=== PATIENT | female | born 1975 | race Hispanic/Latino ===

== ENCOUNTER 2016-10-27 13:13 | Emergency (ER) | payer OTHER ==
[~2016-10-27] VITALS: Ht 160 cm; Wt 56.4 kg
[2016-10-27 13:16] VITALS: BP 139/81; PULSE 98; RESP 15; O2SAT 100
[2016-10-27] MEDS ORDERED: 0.9% Sodium Chloride 1,000 ML IV ONE (13:30)
[2016-10-27] MEDS ORDERED: Ondansetron 2 mg/mL 2 mL Inj IVPUSH PRN (13:30)
--- NOTE | 2016-10-27 13:38 | ED.REPORT ---
HPI-Abd Pain F 40 and Over Date of Service Oct 27, 2016 ED Provider: Karen Horan History of Present Illness: right side pain since this am. no nausea or vomiting. no hx of stones. no hx of cysts. primary care is kaufman. pain comes and goes. 10 was 10/10, no injury. pain is in right upper quadrant. Nursing Notes Stated Complaint: STOMACH PAIN Chief Complaint: Female Abdominal Pain Nursing Notes Reviewed: Yes Allergies: Coded Allergies: Penicillins (Verified Allergy, Severe, RASH, 10/27/16) clindamycin (Verified Allergy, Intermediate, headache, 10/27/16) Tetracyclines (Verified Allergy, Unknown, 10/27/16) Uncoded Allergies: Penicillin (Allergy, Intermediate, 01/16/05) RASH A CHILD PCN CHILD (RASH) (Allergy, Unknown, 01/16/05) General Time Seen by MD: 13:36 Chief Complaint Abdominal pain Hx Obtained From: Patient Sudden in Onset?: Yes Symptom Duration: Intermittent Past Medical History Past Medical History Denies: Asthma, Diabetes mellitus Past Surgical History carpal tunnel and breast augmentation Smoking History Never Smoker Social History Alcohol Use: "Social" Drug Use: Denies drug use Other Social History: Occupation work at [employer] Ambulatory Status Independent Review of Systems Basic Review of Systems Eyes: Vision NL, No discharge Skin: No bruising, No rash, No itch Psychiatric: Normal thought content Physical Exam Vital Signs Vital Signs (First) Date Time Temp Pulse Resp B/P Pulse Ox O2 Delivery O2 Flow Rate FiO2 10/27/16 13:16 36.1 98 15 139/81 100 Room Air Initial VS: Reviewed, Vital signs normal Head / Eyes: Atraumatic, Normocephalic, PERRL ENT: Mucous membranes moist, Conjunctiva normal, No scleral icterus Neck: Supple, Non-tender, Full range of motion Lymphatic: No lymphadenopathy Extremities: Vascular intact, Neuro intact, No swelling, No tenderness Skin: Warm, Dry, No cyanosis Neurologic: Alert, Oriented, Nonfocal Psychiatric: Mood/affect normal, Behavior normal, Normal thought content General/Constitutional: Awake, Alert, No acute distress, Well appearing, Well developed, Well hydrated, Well nourished, Cooperative, Not toxic appearing Respiratory / Chest: Atraumatic, Breath sounds NL, Breath sounds = bilat, No respiratory distress, No rales, No rhonchi Cardiovascular: Heart rate NL, Regular rhythm, Heart sounds NL, No gallop Abdomen: Atraumatic, Soft Tenderness/Guarding/Rebound: Positive: Tender RUQ... (Mild) Back: Atraumatic, Inspection NL, Full range of motion, Painless range of motion Head / Eyes: Atraumatic, Normocephalic, PERRL Interpretation & Diagnostics Lab Results Interpretation Result Diagram: 10/27/16 1345 10/27/16 1345 Test 10/27/16 13:45 10/27/16 13:53 10/27/16 15:10 White Blood Count 10.6th/mm3 (3.8-10.1) Red Blood Count 4.83mil/mm3 (3.90-5.20) Hemoglobin 14.6g/dL (12.0-15.6) Hematocrit 44.3% (35.0-46.0) Mean Corpuscular Volume 91.7fL (81-100) Mean Corpuscular Hemoglobin 30.2pg (27.0-35.0) Mean Corpuscular Hemoglobin Concent 33.0% (32.0-37.0) Red Cell Distribution Width 13.1% (12.3-15.4) Platelet Count 299bil/L (150-400) Neutrophils (%) (Auto) 70.9% (40-74) Lymphocytes (%) (Auto) 20.2% (14-46) Monocytes (%) (Auto) 7.3% (4-12) Eosinophils (%) (Auto) 1.0% (0-5) Basophils (%) (Auto) 0.3% (0-3) Sodium Level 137mEq/L (134-144) Potassium Level 4.2mEq/L (3.5-5.2) Chloride Level 99mEq/L (97-108) Carbon Dioxide Level 23mmol/L (18-29) Blood Urea Nitrogen 9mg/dL (6-20) Creatinine 0.53mg/dL (0.57-1.00) Estimat Glomerular Filtration Rate 185mL/min (>59) Glucose Level 117mg/dL (60-99) Calcium Level 10.2mg/dL (8.5-10.1) Magnesium Level 2.1mg/dL (1.6-2.6) Total Bilirubin 0.9mg/dL (0.0-1.2) Aspartate Amino Transf (AST/SGOT) 31U/L (0-50) Alanine Aminotransferase (ALT/SGPT) 22U/L (0-32) Alkaline Phosphatase 49U/L (25-150) Total Protein 9.0g/dL (6.4-8.4) Albumin 4.7g/dL (3.4-5.0) Lipase 50U/L (13-60) Hold Blue Top Tube Received (Received) Hold Mcdowell Top Tube Received (Received) Urine Color Yellow (YELLOW) Urine Appearance Hazy (CLEAR,HAZY) Urine pH 6.0 (5.0-8.0) Urine Specific [place] 1.010 (1.003-1.035) Urine Protein Negativemg/dL (NEG,TRACE) Urine Glucose (UA) Negativemg/dL (NEGATIVE) Urine Ketones Negativemg/dL (NEGATIVE) Urine Occult Blood Negative (NEGATIVE) Urine Nitrite Negative (NEGATIVE) Urine Bilirubin Negative (NEGATIVE) Urine Urobilinogen Normalmg/dL (NORMAL) Urine Leukocyte Esterase Negative (NEGATIVE) Urine RBC 0-2/hpf (0-2) Urine WBC 0-5/hpf (0-5) Urine Epithelial Cells Many/hpf (NONE-MOD) Urine Crystals None seen (NONE SEEN) Urine Bacteria Few/hpf (NONE-FEW) Urine Hyaline Casts None/lpf (NONE) Urine Granular Casts None seen (NONE SEEN) Urine Waxy Casts None seen (NONE SEEN) Urine Red Blood Cell Casts None seen (NONE SEEN) Urine White Blood Cell Casts None seen (NONE SEEN) Urine Mucus Present (None Seen) Urine Trichomonas None seen (NONE SEEN) Urine Yeast None (NONE SEEN) Urine Culture Reflexed Not indicated Lab Results Interpretation: urine is negative CT Abd / Pelvis Interpretation INDICATIONS: Right lower quadrant and abdominal pain TECHNIQUE: After the administration of oral and intravenous contrast, 5 mm thick sections acquired from the diaphragms to the symphysis. 5 mm thick coronal and sagittal reformats were performed. For radiation dose reduction, the following was used: automated exposure control, adjustment of mA and/or kV according to patient size. COMPARISON: [facility], US, US ABDOMEN, 10/27/2016, 14:11. [facility] , CT, ABDOMEN W CONTRAST, 11/15/2002, 11:44. [facility] , CT, KUB - CT (PNL), 11/15/2008, 11:34. FINDINGS: Image quality: Excellent. ABDOMEN: Lung bases: Lung bases are clear. Heart size is normal. Solid organs: There is a 1.5 cm indeterminate low density nodule in the posterior segment of right hepatic lobe. A 2 cm cyst is noted in the lateral segment of the left hepatic lobe. Liver and spleen are normal in size. Gallbladder is normal. Biliary system is non-dilated. Pancreas enhances normally. No adrenal nodules. Kidneys are normal in size and enhancement, without hydronephrosis. Peritoneum and bowel: Stomach, small bowel, and colon loops are normal in caliber and wall thickness. Appendix is normal. There is no inflammatory stranding in the right lower quadrant. No free fluid or air. Nodes and vessels: No retroperitoneal or mesenteric adenopathy. Aorta and inferior vena cava are normal in caliber. Miscellaneous: No ventral hernias. PELVIS: Genitourinary: Bladder wall thickness is normal. A 2 cm cyst is noted in the right adnexa. Uterus is unremarkable. No pathological free fluid. Miscellaneous: No inguinal hernias or adenopathy. Bones: No suspicious bony lesions. No vertebral body compression fractures. IMPRESSION: 1. Normal appendix. There is no inflammatory stranding in the right lower quadrant. 2. A 2 cm right ovarian cyst. 3. A 1.5 cm indeterminate hepatic hypodensity in the right hepatic lobe. If the patient has known liver disease, a followup liver protocol MRIs recommended. In the absence of liver disease, short interval followup ultrasound would suffice. Dictated by: Peyton Barbosa M.D. on 10/27/2016 at 17:49 Approved by: Peyton Barbosa M.D. on 10/27/2016 at 18:05 US Focused Biliary INDICATIONS: Possible gallbladder pain TECHNIQUE: Real-time scanning was performed of the abdominal and retroperitoneal organs, with image documentation. COMPARISON: None. FINDINGS: Liver: Liver is normal in size and homogeneous in echotexture. Gallbladder: The gallbladder appears normal Biliary ducts: Intrahepatic bile ducts are non-dilated. Extrahepatic bile duct caliber measures 4.6 mm. Normal is 6-7 mm or less in diameter, or 10 mm or less post-cholecystectomy. Pancreas: Visualized portions of the pancreas are sonographically normal. Spleen: Spleen is normal in size and homogeneous in echotexture. Kidneys: Kidneys are normal in size and echotexture. Right kidney measures 10.4 cm long; left kidney measures 11.5 cm long. No hydronephrosis or nephrolithiasis. No solid masses. Aorta: Visualized aorta is normal in caliber at less than 3 cm. Iliacs: Proximal common iliac arteries are normal in caliber at less than 2.5 cm. IVC: Intrahepatic inferior vena cava is patent. Miscellaneous: No free abdominal fluid. IMPRESSION: Source of abdominal pain is not seen. Normal appearing gallbladder and bile ducts. No free fluid found. Re-Eval/Medical Decision Med Decision/Clinical Course 40 year old female with sudden onset of abdominal pain that started this am. Pain initially a 10/10 but has decreased to 4/10. denies nausea. US of gallbladder and kidneys are negative. Abd CT identifies a 2 cm ovarian cyst and a 1.5 liver cyst, unlikley to be the cause of the pain. Provided pain medication and nausea medication.No sign of cholecystitis or peritonitis Discharge & Departure Primary Impression: Abdominal pain Abdominal location: right lower quadrant Qualified Code: R10.31 - Right lower quadrant pain Disposition: Home Patient Instructions: Acute Abdominal Pain (ED) Additional Instructions: Your labs are unremarkable. No sign of infection. The US did not show any abnormalities in the gallbladder. The CT did show a 2 cm right ovarian cyst, there was no free fluid. It also showed a 1.5 cyst in the right hepatic lobe. Your liver enzymes are normal. Without free fluid or an increase in liver enzymes it is unlikely these findings are causing your pain. The urine does not show any sign of infection. Use hydrocodone 1 up to 2 times a day as needed for discomfort. Can also use zofran to help with nause. This medication causes significant constipation, please increase your fiber. REturn with any concerns. Follow with primary care later this week. Referrals: Valencia Kaufman MD (PCP) EDSupervising Provider for APC: Javi Brito MD copies to: Valencia Kaufman MD, Sue ARNP Oct 27, 2016 13:38
[2016-10-27] MEDS: HYDROmorphone 0.5 mg/0.5 mL iSecure Syringe IVPUSH PRN ×2 (13:48→16:05)
[2016-10-27 13:58] LABS: BASOPHILS % (AUTO) 0.3 % (0-3); MONOCYTES % (AUTO) 7.3 % (4-12); Mean Corpuscular Hemoglobin 30.2 pg (27.0-35.0); Mean Corpuscular Volume 91.7 fL (81-100); NEUTROPHILS % (AUTO) 70.9 % (40-74); Platelet Count 299 bil/L (150-400)
[2016-10-27 14:23] LABS: Magnesium 2.1 mg/dL (1.6-2.6)
--- NOTE | 2016-10-27 15:02 | DRSVH ---
PROCEDURE: US ABDOMEN ([id number]) INDICATIONS: Possible gallbladder pain TECHNIQUE: Real-time scanning was performed of the abdominal and retroperitoneal organs, with image documentatio n. COMPARISON: None. FINDINGS: Liver: Liver is normal in size and homogeneous in echotexture. Gallbladder: The gallbladder appears normal Biliary ducts: Intrahepatic bile ducts are non-dilated. Extrahepatic bile duct caliber measures 4.6 mm. Normal is 6-7 mm or less in diameter, or 10 mm or less post-cholecystectomy. Pancreas: Visualized portions of the pancreas are sonographically normal. Spleen: Spleen is normal in size and homogeneous in echotexture. Kidneys: Kidneys are normal in size and echotexture. Right kidney measures 10.4 cm long; left kidne y measures 11.5 cm long. No hydronephrosis or nephrolithiasis. No solid masses. Aorta: Visualized aorta is normal in caliber at less than 3 cm. Iliacs: Proximal common iliac arteries are normal in caliber at less than 2.5 cm. IVC: Intrahepatic inferior vena cava is patent. Miscellaneous: No free abdominal fluid. IMPRESSION: Source of abdominal pain is not seen. Normal appearing gallbladder and bile ducts. No f ree fluid found. Dictated by: Migel Cisneros M.D. on 10/27/2016 at 14:58 Approved by: Migel Cisneros M.D. on 10/27/2016 at 15:00
[2016-10-27 15:04] VITALS: BP 133/72; PULSE 104; RESP 16; O2SAT 99
[2016-10-27] MEDS ORDERED: HYDROmorphone 0.5 mg/0.5 mL iSecure Syringe IVPUSH PRN (15:10)
[2016-10-27 15:22] LABS: APPEARANCE,URINE HAZY (CLEAR,HAZY); COLOR,URINE YELLOW (YELLOW); OCCULT BLOOD,URINE NEGATIVE (NEGATIVE); UROBILINOGEN,URINE NORMAL (NORMAL)
[2016-10-27] MEDS ORDERED: Iohexol 300 mg/mL 30 mL Inj PO ONE (16:30)
[2016-10-27 16:55] VITALS: BP 124/76; PULSE 81; RESP 16; O2SAT 99
--- NOTE | 2016-10-27 18:07 | DRSVH ---
PROCEDURE: CT ABDOMEN AND PELVIS WITH CONTRAST ([id number]) INDICATIONS: Right lower quadrant and abdominal pain TECHNIQUE: After the administration of oral and intravenous contrast, 5 mm thick sections acquired from the diap hragms to the symphysis. 5 mm thick coronal and sagittal reformats were performed. For radiation do se reduction, the following was used: automated exposure control, adjustment of mA and/or kV accordi ng to patient size. COMPARISON: [facility], US, US ABDOMEN, 10/27/2016, 14:11. [facility] , CT, ABDOMEN W CONTRAST, 11/15/2002, 11:44. [facility] , CT, KUB - CT ([facility]), 11/15/2008 , 11:34. FINDINGS: Image quality: Excellent. ABDOMEN: Lung bases: Lung bases are clear. Heart size is normal. Solid organs: There is a 1.5 cm indeterminate low density nodule in the posterior segment of right h epatic lobe. A 2 cm cyst is noted in the lateral segment of the left hepatic lobe. Liver and spleen a re normal in size. Gallbladder is normal. Biliary system is non-dilated. Pancreas enhances normall y. No adrenal nodules. Kidneys are normal in size and enhancement, without hydronephrosis. Peritoneum and bowel: Stomach, small bowel, and colon loops are normal in caliber and wall thickness . Appendix is normal. There is no inflammatory stranding in the right lower quadrant. No free fluid or air. Nodes and vessels: No retroperitoneal or mesenteric adenopathy. Aorta and inferior vena cava are no rmal in caliber. Miscellaneous: No ventral hernias. PELVIS: Genitourinary: Bladder wall thickness is normal. A 2 cm cyst is noted in the right adnexa. Uterus i s unremarkable. No pathological free fluid. Miscellaneous: No inguinal hernias or adenopathy. Bones: No suspicious bony lesions. No vertebral body compression fractures. IMPRESSION: 1. Normal appendix. There is no inflammatory stranding in the right lower quadrant. 2. A 2 cm right ovarian cyst. 3. A 1.5 cm indeterminate hepatic hypodensity in the right hepatic lobe. If the patient has known valente er disease, a followup liver protocol MRIs recommended. In the absence of liver disease, short interv al followup ultrasound would suffice. Dictated by: Peyton Barbosa M.D. on 10/27/2016 at 17:49 Approved by: Peyton Barbosa M.D. on 10/27/2016 at 18:05
[2016-10-27 18:37] VITALS: BP 121/61; PULSE 87; RESP 16; O2SAT 98
[2016-11-18] MEDS ORDERED: HYDR-4003 PO (09:38)
[2016-11-18] MEDS ORDERED: RANI150C4 PO (09:38)
[2016-11-18] MEDS ORDERED: ONDA-53 PO (09:38)
[2016-11-18] MEDS ORDERED: PROG50VI2 IM (09:38)
[2016-11-18] MEDS ORDERED: ACIDOPHILUS PROB1 M1 PO (09:38)
[2016-11-18] MEDS ORDERED: METH750T3 PO (09:38)
[2016-11-18] MEDS ORDERED: DICY10CA13 PO (09:38)
[2016-11-18] MEDS ORDERED: DIAZ2TAB2 PO (09:38)
[2016-11-18] MEDS ORDERED: CALC117719 PO (09:38)
[2016-12-01] MEDS ORDERED: HYDR-4003 PO (16:09)
[2016-12-01] MEDS ORDERED: ESOM40CA41 PO (16:09)
[2016-12-01] MEDS ORDERED: PROP10TA8 PO ×2 (16:11)
[2016-12-01] MEDS ORDERED: CETI10CA PO (16:11)
== END 2016-10-27 18:38 | disposition home or self-care (01) ==
LOC: SED 13:13
DX: R10.31 Right lower quadrant pain (principal); Z88.0 Allergy status to penicillin; Z88.1 Allergy status to other antibiotic agents; Z88.8 Allergy status to other drugs, medicaments and biological substances
CPT/HCPCS: 36415; 74177; 76700; 80053; 81000; 81025; 83690; 83735; 85025; 96361; 96374; 96375; 99285; J1170; J1885; J2405; J7030; Q9967

== ENCOUNTER 2016-11-19 09:53 | Day surgery (SDC) | payer OTHER ==
[~2016-11-19] VITALS: Ht 160 cm; Wt 56.7 kg
[~2016-11-19 09:53] MED LIST: ACIDOPHILUS PROB1 M1 PO; CALC117719 PO; DIAZ2TAB2 PO; DICY10CA13 PO; HYDR-4003 PO; METH750T3 PO; ONDA-53 PO; PROG50VI2 IM; RANI150C4 PO; Sodium Chloride LOK Flush 10 mL Syringe IV PRN; fentaNYL-PF 50 mCg/mL 2 mL Inj IVPUSH PRN
[2016-11-19 10:09] VITALS: BP 131/84; PULSE 78; RESP 14; O2SAT 100
[2016-11-19 10:44] VITALS: BP 124/70; PULSE 77; RESP 12; O2SAT 99
[2016-11-19 10:54] VITALS: BP 119/65; PULSE 71; RESP 12; O2SAT 99
--- NOTE | 2016-11-19 11:21 | ENDO ---
[address] [address] ENDOSCOPY PROCEDURE PATIENT: GALEN GEORGE : 1975 MR#: [id number] ADMIT: 11/19/2016 JOB ID: [id number] DATE OF SERVICE: 11/19/2016 TYPE OF OPERATION: Esophagogastroduodenoscopy with biopsy. PREOPERATIVE DIAGNOSIS(ES): 1. Epigastric pain. 2. Gastroesophageal reflux disease. POSTOPERATIVE DIAGNOSIS(ES): Normal upper endoscopy, status post biopsy. ANESTHESIA: Fentanyl 100 mcg, Versed 5 mg IV administered. COMPLICATIONS: None. BLOOD LOSS: Minimal. DESCRIPTION OF PROCEDURE: After risks and benefits were explained to the patient, informed consent was obtained. After anesthesia administered, upper endoscope was then inserted into the mouth, intubating the esophagus, stomach, second portion of duodenum, and mucosa carefully examined. After the procedure was done, the scope withdrawn and the procedure terminated. FINDINGS: Upon inspection of the esophagus, the esophagus was normal without masses, ulcers, or lesions. Z-line located 40 cm from incisors. Upon entering stomach, stomach was normal without masses, ulcers, or lesions. Retroflexion was normal. Duodenal bulb, first and second portions were normal. Biopsies taken of antrum, body and distal esophagus. IMPRESSION: Normal endoscopy, status post biopsy. RECOMMENDATION: 1. Await pathology results. 2. Follow up with Dr. Kit Mayers in GI clinic as an outpatient.
[2016-11-19] MEDS ORDERED: 0.9% Sodium Chloride 1,000 ML IV ONE (11:53)
--- NOTE | 2016-11-22 13:57 | PATH ---
SURGICAL PATHOLOGY Attending Physician:Xavi Aburto MD CASE STATUS: Signed Out PATIENT NAME: GALEN GEORGE PID: [id number] : 1975 DATE COLLECTED:11/19/2016 17:57 SPECIMEN: 1: Stomach, Antrum, Biopsy 2: Gastric, Biopsy 3: Esophagus, Biopsy CLINICAL HISTORY: GERD, ABDOMINAL PAIN 1). ANTRUM BIOPSY 2). GASTRIC BODY BIOPSY 3). DISTAL ESOPHAGUS BIOPSY FINAL DIAGNOSIS: 1.GASTRIC ANTRUM BIOPSY: MILD CHRONIC GASTRITIS INVOLVING ANTRAL MUCOSA. Negative for evidence of Helicobacter. Negative for intestinal metaplasia. Negative for dysplasia and malignancy. 2.GASTRIC BODY BIOPSY: FOCAL MILD CHRONIC GASTRITIS INVOLVING FUNDIC MUCOSA. Negative for evidence of Helicobacter. Negative for intestinal metaplasia. Negative for dysplasia and malignancy. 3.DISTAL ESOPHAGUS BIOPSY: FRAGMENTS OF SQUAMOUS MUCOSA WITH NO GASTRIC MUCOSA IDENTIFIED. MILD REACTIVE EPITHELIAL CHANGES, BUT NEGATIVE FOR DYSPLASIA AND MALIGNANCY. Negative for intraepithelial eosinophils. ICD10 code R10.9 K29.70 GROSS DESCRIPTION: Received are three formalin-filled containers, each labeled with the patient' s name. 1. Received in formalin, labeled with the patient' s name and "antrum BX", are two fragments of garcia, soft tissue ranging in size from 0.1 x 0.1 x 0.1 cm to 0.2 x 0.2 x 0.1 cm. All fragments are totally submitted in cassette 1A. 2. Received in formalin, labeled with the patient' s name and "gastric body BX", are two fragments of garcia, soft tissue ranging in size from 0.1 x 0.1 x 0.1 cm to 0.2 x 0.2 x 0.2 cm. All fragments are totally submitted in cassette 2A. 3. Received in formalin, labeled with the patient' s name and "distal esophagus BX", is one fragment of garcia, soft tissue measuring 0.2 x 0.2 x 0.1 cm. The fragment is totally submitted in cassette 3A. ([id number]) MICRO DESCRIPTION: See diagnosis. ICD-9 CODES: CPT CODES: 1: 12855 2: 72723 3: 83920 Electronically Signed Out Gold Juárez MD [facility]., [address] [place] [id number] Technical component performed at [facility], [address], [place], [address]
[2016-12-01] MEDS ORDERED: HYDR-4003 PO (16:09)
[2016-12-01] MEDS ORDERED: ESOM40CA41 PO (16:09)
[2016-12-01] MEDS ORDERED: CETI10CA PO (16:11)
[2016-12-01] MEDS ORDERED: PROP10TA8 PO ×2 (16:11)
== END 2016-11-19 23:59 | disposition home or self-care (01) ==
LOC: END 09:53
PROVIDERS: ATTEND Internal Medicine Gastroenterology
DX: K29.50 Unspecified chronic gastritis without bleeding (principal); K21.9 Gastro-esophageal reflux disease without esophagitis; R10.13 Epigastric pain; J30.9 Allergic rhinitis, unspecified; M54.2 Cervicalgia; I49.8 Other specified cardiac arrhythmias; F41.9 Anxiety disorder, unspecified
CPT/HCPCS: 43239; G0500; J7030

== ENCOUNTER 2016-11-21 13:13 | Emergency (ER) | payer OTHER ==
[~2016-11-21] VITALS: Ht 160 cm; Wt 56.8 kg
[~2016-11-21 13:13] MED LIST changes: -DICY10CA13 PO; -ONDA-53 PO; -Sodium Chloride LOK Flush 10 mL Syringe IV PRN; -fentaNYL-PF 50 mCg/mL 2 mL Inj IVPUSH PRN
[2016-11-21 13:15] VITALS: BP 121/77; PULSE 71; RESP 14; O2SAT 98
--- NOTE | 2016-11-21 13:38 | ED.REPORT ---
HPI-Abd Pain F Under 40 Date of Service Nov 21, 2016 ED Provider: Alicia Baker History of Present Illness: 40-year-old female here for pelvic pain. She was just seen at the urgent care prior to arrival. Had a complete workup including a pelvic exam which showed bacterial vaginosis and an ultrasound showed a cyst and fibroids. Both of those are chronic and not likely the cause of her pain so she was treated for bacterial vaginosis. Looking at her paperwork her urine was clear except for 50 RBCs, which was not confirmed in the microscopic UA. Her pain is in her pelvic area it radiates to her low back. It is sharp and intermittent. It started this morning she has no fever. The pain occurs randomly and also occurs when she is urinating . The pain was not that bad at the urgent care as she had taken a Vicodin just prior to arrival. Other times at home the pain was severe again. She took another Vicodin about an hour and a half ago and it is now down to a 3 out of 10. She comes in because the pain seems to be out of proportional for bacterial vaginosis. She also has some gallbladder issues that she sees a specialist for on Tuesday. This pain is not bothering her now. Nursing Notes Stated Complaint: PELVIC PAIN Chief Complaint: Female Abdominal Pain Nursing Notes Reviewed: Yes Allergies: Coded Allergies: Penicillins (Verified Allergy, Severe, RASH, 11/18/16) clindamycin (Verified Allergy, Intermediate, headache, 11/18/16) Tetracyclines (Verified Allergy, Unknown, 11/18/16) metronidazole (Verified Adverse Reaction, Unknown, Headache, 11/18/16) Uncoded Allergies: Penicillin (Allergy, Intermediate, 01/16/05) RASH A CHILD PCN CHILD (RASH) (Allergy, Unknown, 01/16/05) Scheduled Lactobacillus Acidophilus (Acidophilus Probiotic) 1 Mg Tablet 1 MG PO DAILY Ranitidine (Ranitidine) 150 Mg Capsule 150 MG PO BID Scheduled PRN Diazepam (Diazepam) 2 Mg Tablet 2 MG PO TID PRN PRN For Anxiety Hydrocodone-Acetaminophen 5-325 mg (Hydrocodone-Acetaminophen 5-325 mg) 1 Each Tablet 1 TABLET PO BID PRN PRN For Pain Hydrocodone-Acetaminophen 5-325 mg (Hydrocodone-Acetaminophen 5-325 mg) 1 Each Tablet 1 TABLET PO Q4H PRN PRN For Pain Methocarbamol (Methocarbamol) 750 Mg Tablet 750 MG PO QID PRN PRN For Spasm Miscellaneous Medications Calcium Carbonate (Tums Ultra Strength) 1,177 Mg Tab.chew 1,177 MG PO Progesterone (Progesterone in Oil) 50 Mg/1 Ml Vial 50 MG IM General Time Seen by MD: 13:30 Chief Complaint Abdominal pain Hx Obtained From: Patient Arrived By: Walk-in Sudden in Onset?: Yes Onset Occurred: 5 - 8 hours ago Progression since Onset: Intermittent Location: : Suprapubic Quality: Sharp, Stabbing Radiation: : Back Severity: Current: Mild Severity: Maximum: Severe Recent Healthcare: Recent doctor visit Similar Sx Previous: No Past Medical History Past Surgical History carpal tunnel and breast augmentation Smoking History Never Smoker Social History Alcohol Use: "Social" Drug Use: Denies drug use Other Social History: Occupation work at [employer] Status Independent Review of Systems Basic Review of Systems Eyes: Vision NL, No discharge ENT: Hearing NL, No pain, No nasal congestion, No pharyngeal pain Neurologic: NL mental status, No weakness, No numbness Psychiatric: Normal thought content Constitutional: Denies: Chills, Fatigue, Fever, Lethargy, Malaise, Recent wt loss, Weakness - generalized Respiratory: Denies: Dyspnea on exertion, Hemoptysis, Non-productive cough, Parox nocturnal dyspnea, Pleuritic pain, Prod cough, bloody, Prod cough, brown, Prod cough, clear, Prod cough, green, Prod cough, white, Prod cough, yellow, Shortness of breath, Wheezing Cardiovascular: Denies: Chest pain, Dyspnea on exertion, Edema, Orthopnea, Palpitations, Parox nocturnal dyspnea, Syncope GI: Reports: Abdominal pain Female: Reports: Dysuria, Pelvic pain, Denies: Flank pain, Hematuria, Urinary frequency, Urinary urgency, Urination decreased, Urination increased, Vaginal bleeding - abnl, Vaginal discharge Musculoskeletal: Reports: Back pain Complete sys rev & neg: except as marked. Physical Exam Initial Vital Signs Vital Signs (First) Date Time Temp Pulse Resp B/P Pulse Ox O2 Delivery O2 Flow Rate FiO2 11/21/16 13:15 36.7 71 14 121/77 98 Initial VS: Reviewed, Vital signs normal Head / Eyes: Atraumatic, Normocephalic, PERRL ENT: Mucous membranes moist, Conjunctiva normal, No scleral icterus Neck: Supple, Non-tender, Full range of motion Lymphatic: No lymphadenopathy Skin: Warm, Dry, No cyanosis Neurologic: Alert, Oriented, Nonfocal Psychiatric: Mood/affect normal, Behavior normal, Normal thought content Respiratory / Chest: Breath sounds NL, Breath sounds = bilat, No respiratory distress, No rales, No rhonchi, No wheezing Cardiovascular: Heart rate NL, Regular rhythm, Heart sounds NL, Peripheral circulation NL Abdomen: Atraumatic, Soft, No guarding, No rebound, BS normoactive, No hernia, No palpable mass Tenderness/Guarding/Rebound: Positive: Tender suprapubic no cva tenderness Back: Inspection NL, Non-tender, No CVA tenderness Skin: Atraumatic, Color NL Interpretation & Diagnostics Lab Results Interpretation Result Diagram: 11/21/16 1415 11/21/16 1415 Test 11/21/16 14:00 11/21/16 14:15 Hold Urine Received (Received) White Blood Count 6.2th/mm3 (3.8-10.1) Red Blood Count 4.39mil/mm3 (3.90-5.20) Hemoglobin 13.1g/dL (12.0-15.6) Hematocrit 39.0% (35.0-46.0) Mean Corpuscular Volume 88.8fL (81-100) Mean Corpuscular Hemoglobin 29.8pg (27.0-35.0) Mean Corpuscular Hemoglobin Concent 33.6% (32.0-37.0) Red Cell Distribution Width 12.4% (12.3-15.4) Platelet Count 231bil/L (150-400) Neutrophils (%) (Auto) 58.2% (40-74) Lymphocytes (%) (Auto) 29.5% (14-46) Monocytes (%) (Auto) 12.0% (4-12) Eosinophils (%) (Auto) 0% (0-5) Basophils (%) (Auto) 0% (0-3) Sodium Level 134mEq/L (134-144) Potassium Level 4.1mEq/L (3.5-5.2) Chloride Level 100mEq/L (97-108) Carbon Dioxide Level 22mmol/L (18-29) Blood Urea Nitrogen 8mg/dL (6-20) Creatinine 0.60mg/dL (0.57-1.00) Estimat Glomerular Filtration Rate 160mL/min (>59) Glucose Level 106mg/dL (60-99) Calcium Level 9.7mg/dL (8.5-10.1) Total Bilirubin 0.7mg/dL (0.0-1.2) Aspartate Amino Transf (AST/SGOT) 19U/L (0-50) Alanine Aminotransferase (ALT/SGPT) 14U/L (0-32) Alkaline Phosphatase 43U/L (25-150) Total Protein 7.6g/dL (6.4-8.4) Albumin 4.6g/dL (3.4-5.0) CT Abd / Pelvis Interpretation PROCEDURE: CT KUB ([id number]) INDICATIONS: pain TECHNIQUE: Noncontrast 5 mm thick sections acquired from the diaphragms to the symphysis. 5 mm thick coronal and sagittal reformats were then performed. For radiation dose reduction, the following was used: automated exposure control, adjustment of mA and/or kV according to patient size. COMPARISON: [facility], US, US PELVIC+TRANSVAG+DOP, 11/21/2016, 10:34. [facility], CT, CT ABD PELVIS W CON, 10/27/2016, 17:32. FINDINGS: Image quality: Excellent. Lung bases: Lung bases are clear. Heart size is normal. Urinary system: Both kidneys are normal in size. No kidney stones. No hydronephrosis or perinephric fat stranding. Both ureters appear non-dilated throughout their expected courses. Bladder wall thickness is normal; no calcified bladder stones. Other solid organs: Liver and spleen are normal in size. Low attenuation hepatic foci are unchanged likely represent a bone cyst and hemangioma based on prior exam. Gallbladder demonstrates layering sludge. No wall thickening. Pancreas is normal in contours. No adrenal nodules. Peritoneum and bowel: Unenhanced bowel loops demonstrate normal wall thickness and caliber. No free fluid or air. The appendix is unremarkable. No right lower quadrant inflammatory change. Nodes and vessels: No retroperitoneal or mesenteric adenopathy by size criteria. Aorta and inferior vena cava are normal in caliber. Abdominal wall: No ventral hernias. Bilateral breast implants are noted. Pelvis: No free pelvic fluid. No inguinal hernias or adenopathy. 20 mm right ovarian cyst. Bones: No suspicious bony lesions. No vertebral body compression fractures. IMPRESSION: 1. Layering sludge within the gallbladder without wall thickening. 2. 20 mm right ovarian cyst. No free fluid. 3. Mild scattered stool. 4. No nephro or ureterolithiasis. Re-Eval/Medical Decision Med Decision/Clinical Course Med Decision/Clinical Course: pt okayed to take home vicodin, 1 tab Patient rested comfortably in bed at this time. Discussed negative lab and CAT scan. Will follow up with PCP in 24-48 hours if still having pain. Follow-up with surgery on Tuesday as scheduled for gallbladder. Return if worse Discharge & Departure Shift Change Sign-Out Laboratory Evaluation: Lab evaluation discussed Imaging Studies: Imaging discussed Procedures: Results discussed Primary Impression: Abdominal pain Abdominal location: lower abdomen, unspecified Qualified Code: R10.30 - Lower abdominal pain, unspecified Disposition: Home Discharge Condition All VS Reviewed: Yes Condition: Stable Patient Instructions: Acute Abdominal Pain (ED) Additional Instructions: Take her hydrocodone for pain as needed 1-2 every 4-6 hours. Drink lots of fluids and get lots of rest. Take antibiotics for BV as prescribed. Follow-up in 24-48 hours with her PCP if abdominal pain is not resolving. Pelvic rest until it is gone. Return to emergency room if pain is uncontrollable, fever, vomiting or any other concerning symptoms Referrals: Valencia Felix MD (PCP) EDSupervising Provider for APC: Danny Brandt MD copies to: Valencia Felix MD, Linnea K ARNP Nov 21, 2016 13:38
[2016-11-21 14:46] LABS: BASOPHILS % (AUTO) 0 % (0-3); EOSINOPHILS % (AUTO) 0 % (0-5); Mean Corpuscular Hemoglobin 29.8 pg (27.0-35.0); Mean Corpuscular Volume 88.8 fL (81-100); NEUTROPHILS % (AUTO) 58.2 % (40-74); Platelet Count 231 bil/L (150-400)
--- NOTE | 2016-11-21 15:13 | DRSVH ---
PROCEDURE: CT KUB (PNL-[id number]) INDICATIONS: pain TECHNIQUE: Noncontrast 5 mm thick sections acquired from the diaphragms to the symphysis. 5 mm thick coronal an d sagittal reformats were then performed. For radiation dose reduction, the following was used: aut omated exposure control, adjustment of mA and/or kV according to patient size. COMPARISON: [facility], US, US PELVIC+TRANSVAG+DOP, 11/21/2016, 10:34. [facility], CT, CT ABD PELVIS W CON, 10/27/2016, 17:32. FINDINGS: Image quality: Excellent. Lung bases: Lung bases are clear. Heart size is normal. Urinary system: Both kidneys are normal in size. No kidney stones. No hydronephrosis or perinephri c fat stranding. Both ureters appear non-dilated throughout their expected courses. Bladder wall th ickness is normal; no calcified bladder stones. Other solid organs: Liver and spleen are normal in size. Low attenuation hepatic foci are unchanged likely represent a bone cyst and hemangioma based on prior exam. Gallbladder demonstrates layering sl udge. No wall thickening. Pancreas is normal in contours. No adrenal nodules. Peritoneum and bowel: Unenhanced bowel loops demonstrate normal wall thickness and caliber. No free fluid or air. The appendix is unremarkable. No right lower quadrant inflammatory change. Nodes and vessels: No retroperitoneal or mesenteric adenopathy by size criteria. Aorta and inferior vena cava are normal in caliber. Abdominal wall: No ventral hernias. Bilateral breast implants are noted. Pelvis: No free pelvic fluid. No inguinal hernias or adenopathy. 20 mm right ovarian cyst. Bones: No suspicious bony lesions. No vertebral body compression fractures. IMPRESSION: 1. Layering sludge within the gallbladder without wall thickening. 2. 20 mm right ovarian cyst. No free fluid. 3. Mild scattered stool. 4. No nephro or ureterolithiasis. Dictated by: Katelyn Llamas M.D. on 11/21/2016 at 15:07 Approved by: Katelyn Llamas M.D. on 11/21/2016 at 15:11
[2016-11-21] MEDS ORDERED: HYDR-4003 PO (15:32)
[2016-11-21 16:08] VITALS: BP 103/57; PULSE 72; O2SAT 98
[2016-12-01] MEDS ORDERED: HYDR-4003 PO (16:09)
[2016-12-01] MEDS ORDERED: ESOM40CA41 PO (16:09)
[2016-12-01] MEDS ORDERED: CETI10CA PO (16:11)
[2016-12-01] MEDS ORDERED: PROP10TA8 PO ×2 (16:11)
== END 2016-11-21 15:55 | disposition home or self-care (01) ==
LOC: SED 13:13
DX: R10.30 Lower abdominal pain, unspecified (principal); Z79.899 Other long term (current) drug therapy; Z88.0 Allergy status to penicillin; Z88.1 Allergy status to other antibiotic agents

== ENCOUNTER 2016-12-06 11:19 | Day surgery (SDC) | payer OTHER ==
[2016-12-06] VITALS (8 sets, daily range): BP systolic 110–133; BP diastolic 53–73; PULSE 78–103; RESP 16–22; O2SAT 98–100
[~2016-12-06] VITALS: Ht 160 cm; Wt 54.8 kg
[~2016-12-06 11:19] MED LIST changes: +CETI10CA PO; +ESOM40CA41 PO; +Lactated Ringer's 1,000 ML IV ONE; +PROP10TA8 PO; -RANI150C4 PO
[2016-12-06] MEDS ORDERED: EPHEDrine/NS 5 mg/mL 5 mL Syringe ONE (11:20)
[2016-12-06] MEDS ORDERED: Propofol 10,000 mCg/mL 20 mL Inj ONE (11:20)
[2016-12-06] MEDS ORDERED: Glycopyrrolate 0.2 MG/ML 1mL Inj ONE (11:20)
[2016-12-06] MEDS ORDERED: Succinylcholine Chloride 20 mg/mL 5 mL Inj ONE (11:20)
[2016-12-06] MEDS ORDERED: Lidocaine PF 1% 30 mL Inj ONE (11:20)
[2016-12-06] MEDS ORDERED: Dexamethasone 4 mg/mL Inj ONE (11:20)
[2016-12-06] MEDS ORDERED: Ondansetron 2 mg/mL 2 mL Inj ONE (11:20)
[2016-12-06] MEDS ORDERED: Neostigmine 1 mg/mL 10 mL Inj ONE (11:20)
[2016-12-06] MEDS ORDERED: fentaNYL-PF 50 mCg/mL 2 mL Inj ONE (11:20)
[2016-12-06] MEDS ORDERED: Rocuronium 10 mg/mL 5 mL Inj ONE (11:20)
--- NOTE | 2016-12-06 14:11 | PCM.HPANE ---
Patient Data Surgeon Admitting Provider: Attending Provider:Meghan Archer MD Primary Care Physician:Valencia Felix MD Other Provider:Jamel Clay Anesthesia Reason for Visit Other Specified Diseases Of Gallbladder Ht/WT & BMI Height (Feet): 5 Height (Inches): 3 Weight (Kilograms): 55.79 Body Mass Index 21.00 Allergies Coded Allergies: Penicillins (Verified Allergy, Severe, RASH, 11/18/16) clindamycin (Verified Allergy, Intermediate, headache, 11/18/16) Tetracyclines (Verified Allergy, Unknown, 11/18/16) metronidazole (Verified Adverse Reaction, Unknown, Headache, 11/18/16) Past Anesthesia History Anesthesia History: Denies:: Abnormal Airway, Anesthesia Reactions, Difficult Intubation, Fam Anesthesia Reaction, Fam Malignant Hypertherm, Malignant Hyperthermia Diabetes History Hx Diabetes?: No MRSA MRSA: No Medications Hypertension Medication: No Home Meds Incl Beta Ramona: Yes Reported Medications Cetirizine HCl (Zyrtec)10 Mg [id number] Mg PO HS #30 CAPSULE Ref 0 12/01/16 Propranolol HCl 10 Mg Tablet5-10 Mg PO PRN palpitations 90 Days Ref 0 12/01/16 Propranolol HCl 10 Mg Ofvfcy68 Mg PO BID 90 Days Ref 0 12/01/16 Hydrocodone-Acetaminophen 5-325 mg 1 Each Tablet0.5-1 Tablet PO Q6H PRN For Pain Ref 0 12/01/16 Esomeprazole Magnesium (Nexium)40 Mg Capsule.dr40 Mg PO DAILY Ref 0 12/01/16 Calcium Carbonate (Tums Ultra Strength)1,177 Mg Tab.chew1,177 Mg PO 11/18/16 Progesterone (Progesterone in Oil)50 Mg/1 Ml Vial50 Mg IM 11/18/16 Methocarbamol 750 Mg Kpqfks751 Mg PO QID PRN For Spasm Ref 0 11/18/16 Diazepam 2 Mg Tablet2 Mg PO TID PRN For Anxiety Ref 0 11/18/16 Lactobacillus Acidophilus (Acidophilus Probiotic)1 Mg Tablet1 Mg PO DAILY 11/18/16 Discontinued Reported Medications Ranitidine 150 Mg Eqgynlv388 Mg PO BID Ref 0 11/18/16 Hydrocodone-Acetaminophen 5-325 mg 1 Each Tablet1 Tablet PO BID PRN For Pain Ref 0 11/18/16 Discontinued Scripts Hydrocodone-Acetaminophen 5-325 mg 1 Each Tablet1 Tablet PO Q4H PRN For Pain #8 TABLET Ref 0 Prov:Alicia Baker OPERATIONS SCHEDULER 11/21/16 Last Time Dose Received Intermittent vicodin use; not daily Vallium rarely Takes propranolol daily History History of ENT Problems?: Yes HEENT History: Positive for:: TMJ (wears nightguard) Denies:: Abnormal Airway Cataracts Difficult Intubation Glaucoma Hearing Problem Denture Type: None Teeth Condition: Within Normal Limits Hx of Heart Problems?: Yes Cardiovascular History: Positive for:: Irregular Heartbeat (accelerated junctional rhythm) Denies:: AICD Congestive Heart Failure Heart Murmur Hypertension Pacemaker Peripheral Vascular Rheumatic Fever Thrombophlebitis Valvular Heart Disease Other History/Comments cardiac w/u has been unremarkable Hx of Respiratory Problem?: No Respiratory History: Denies:: Asthma COPD Emphysema Oxygen Administration Pneumonia Tuberculosis Use of C-PAP Machine Use of Inhalers / NEBS Hx 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 Skin History: Denies:: History Skin Disorders? Pressure Ulcers Hx Musculoskeletal Problems?: Yes Musculoskeletal History: Positive for:: Back Injury Denies:: Fibromyalgia Joint Replacement Musculoskeletal Trauma Myasthenia Gravis Osteoarthritis Rheumatoid Arthritis Systemic Lupus Hx of Psycho/Social Problems?: Yes Psycho Social History: Positive for:: Anxiety Hx Surgeries?: Yes (carpal tunnel, breast) Hx Any Other Health Problems?: Yes Other History: Denies:: Cancer Thyroid Disease History Blood Transfusions: Positive for:: Accept Blood Products? Denies:: Blood Transfusions Hx Diabetes: No Hx Alcohol Use: NoHx Substance Use: No Smoking Status: Never Smoker Stop/Bang S-Snoring: Do You Snore Loudly: No T-Tired: feel tired, fatigued: No O-Obsered: Observed not breath: No P-Blood Pressure: treated: No B- Body Mass Index > 35 kg/m2: No A- Age over 50: No N- Neck Large Circumference: No G- Gender Male: No BILLY Total Score: 0 Risk Assessment Category Category 1A: Patient has history of documented sleep apnea, and HAS NOT received any narcotic, sedative or anesthesia administration during this stay. Category 1B: Patient has history of documented sleep apnea, and HAS received any narcotic , sedative or anesthesia administration during this stay Category 2: Patient has SUSPECTED Obstructive Sleep Apnea, and HAS received any narcotic , sedative or anesthesia administration during this stay. Category 3: Patient has SUSPECTED Obstructive Sleep Apnea and HAS NOT received narcotic, sedative or anesthesia administration during this stay. Category 4: Outpatient in Procedural Areas with known sleep apnea or who screen positive for High Risk via the STOP/BANG questionnaire. Exam Exam Vital Signs Vital Signs Date Time Temp Pulse Resp B/P Pulse Ox O2 Delivery O2 Flow Rate FiO2 12/06/16 12:05 35.5 83 16 133/66 100 Room Air General Appearance: Alert, Oriented X3 HEENT/AIRWAY: MP 2, Neck Movement (FROM) Lungs: Clear to Auscultation, Clear to Percussion Heart: Exam Unremarkable, Regular Rate/Rhythm Plan Impression Patient chart reviewed, patient interviewed and anesthestic plan with risks, benefits, and alternatives discussed, and informed consent obtained. ASA Physical Status: ASA2 Mod Systemic Disease Anesthetic Plan: GA Bene/Risks/Altern/Consents: Yes HP Complete Prior to Induction: Yes Jaime Ritter MD December 06, 2016 12:08
[2016-12-06] MEDS ORDERED: Lactated Ringer's 500 ML IV PRN (14:30)
[2016-12-06] MEDS ORDERED: Phenylephrine 10,000 mCg/mL Inj IVPUSH PRN (14:30)
[2016-12-06] MEDS ORDERED: Ondansetron 2 mg/mL 2 mL Inj IVPUSH PRN (14:30)
[2016-12-06] MEDS ORDERED: Atropine 0.4 mg/mL Inj IVPUSH PRN (14:30)
[2016-12-06] MEDS ORDERED: HYDROmorphone 1 mg/mL Inj IVPUSH PRN (14:30)
[2016-12-06] MEDS ORDERED: Lactated Ringer's 1,000 ML IV SCH (14:30)
[2016-12-06] MEDS ORDERED: MetoCLOpramide 5 mg/mL 2 mL Inj IVPUSH PRN (14:30)
[2016-12-06] MEDS ORDERED: EPHEDrine Sulfate 50 mg/mL Inj IVPUSH PRN (14:30)
[2016-12-06] MEDS ORDERED: Labetalol 5 mg/mL 4 mL Inj IV PRN (14:30)
[2016-12-06] MEDS ORDERED: OXYC-474 PO (14:42)
[2016-12-06] MEDS ORDERED: Bupivacaine-MPF 0.5% 30 mL Inj INFILTRATE ONE (15:03)
--- NOTE | 2016-12-06 15:51 | PCM.SURGPO ---
Immediate Operative Note Date of Surgery: December 06, 2016 Pre Operative Diagnosis Biliary Colic Post Operative Diagnosis Biliary Colic Procedure Laparoscopic Cholecystectomy Surgeon and Motor Analyst Surgeon: Meghan Archer MD Assistants: GLENN Doyle, Magaly Morris MS3 Findings Normal Anatomy Complications There were no periprocedural complications identified. Surgical Specimen Removed: Yes Specimen sent to Pathology: Yes Anesthetic Administered: GA Grafts, Implants: None Output, Estimated Blood Loss: 0 Blood Admin during surgery: No Attending Statement Production Control Expert listed was medically necessary for the successful completion of the case Meghan Archer MD December 06, 2016 15:51
--- NOTE | 2016-12-06 16:11 | PCM.ANEP1 ---
Post Anesthesia Phase 1 PACU Phase 1 Assessment Date of Service: December 06, 2016 Vital Signs Vital Signs Date Time Temp Pulse Resp B/P Pulse Ox O2 Delivery O2 Flow Rate FiO2 12/06/16 12:05 35.5 83 16 133/66 100 Room Air Anesthetic Administered: GA Level of Alertness: Awake, talking BARRIOS's with Equal Strength: Yes Pain: No Nausea or Vomiting: No Oxygen Delivery: Simple Mask Lungs: Clear to Auscultation, Clear to Percussion Complications: No Follow up Care: No Comments See anesth record for PACU VS. PACU VSS Jaime Ritter MD December 06, 2016 16:10
[2016-12-06] MEDS: fentaNYL-PF 50 mCg/mL 2 mL Inj IVPUSH PRN ×2 (16:28→16:33)
[2016-12-06] MEDS ORDERED: Lactated Ringer's 1,000 ML IV ONE (17:00)
--- NOTE | 2016-12-07 08:53 | OP ---
[address] [address] OPERATIVE REPORT PATIENT: GALEN GEORGE : 1975 MR#: [id number] ADMIT: 12/06/2016 JOB ID: [id number] DATE OF SURGERY: 12/06/2016 PREOPERATIVE DIAGNOSIS(ES): Biliary colic. POSTOPERATIVE DIAGNOSIS(ES): Biliary colic. PROCEDURE PERFORMED: Laparoscopic cholecystectomy with attempted cholangiogram. SURGEON: Meghan Archer M.D. ARCHITECTURAL WOOD MODEL MAKER: Ezio Garcia PA-C and Magaly Morris MS 3 COMPLICATIONS: None. CONDITION OF THE PATIENT: Stable. INDICATIONS: The patient is a 40-year-old lady who developed severe right lower abdominal pain on October 25, 2016 prompting a visit to the emergency department. Evaluation at that time did not reveal any obvious explanation and she was sent to Gastroenterology for a diagnosis of possible reflux. In the meantime, she continued to have episodic abdominal pain prompted especially by eating fatty food. In December she then had a HIDA scan, which showed a decreased ejection fraction and that she was sent to me for surgical consultation. After discussing the risks, benefits, and alternatives, she is here today for cholecystectomy. PROCEDURE DETAILS: She was placed in a supine position. Underwent smooth induction of general anesthesia. Abdomen was prepped and draped in the usual sterile fashion. Surgical time-out was undertaken using safety checklist, and all were in agreement. I began by making an intraumbilical incision, entered the abdomen using open Fatimah technique. After pneumoperitoneum, I then placed three 5 mm ports in the upper abdomen under direct visualization. We then retracted the gallbladder cephalad and to the right and dissected the triangle of Calot anteriorly and posteriorly. I then divided the cystic artery between clips and then clipped the cystic duct toward the specimen in an attempt to obtain a cholangiogram but the duct was small. Given she did not have any stones and her anatomy very favorable, decided not trying too hard to get a cholangiogram and clipped the cystic duct doubly on the patient's side and then divided it. I then dissected the gallbladder off the liver bed with good hemostasis and placed it in an EndoCatch bag and removed it through the umbilical port site. All ports were removed under direct vision. After that, the abdomen was exsufflated and umbilical fascia was closed with a [id number] 0-Vicryl suture. Skin was reapproximated with 4-0 Monocryl. Steri-Strips and a sterile dressing were applied. The patient was recovered from anesthesia and was taken to the recovery room in stable condition. BRIAN
--- NOTE | 2016-12-07 14:02 | PATH ---
SURGICAL PATHOLOGY Attending Physician:Meghan Archer MD CASE STATUS: Signed Out PATIENT NAME: GALEN GEORGE PID: [id number] : 1975 DATE COLLECTED:12/06/2016 00:00 SPECIMEN: Gallbladder CLINICAL HISTORY: BILIARY DYSKINESIA 1). GALLBLADDER FINAL DIAGNOSIS: 1.GALLBLADDER: ACALCULOUS MINIMAL CHRONIC CHOLECYSTITIS. ICD10 code K81.1 GROSS DESCRIPTION: The specimen is received in one formalin filled container labeled with the patient's name, sublabeled "gallbladder" and consists of an intact 6.5 x 3.5 x 3.5 CM gallbladder. The serosa is smooth. The wall is 0.1-0.2 CM in thickness. The mucosa is a dark green in color. The lumen contains a dark green mucoid material and no calculus are noted. 5 lead generation representative sections are submitted in one cassette. 12/07/2016 DAC MICRO DESCRIPTION: See diagnosis. ICD-9 CODES: CPT CODES: 1: 60636 Electronically Signed Out Gold Juárez MD [facility] [address], [place] [address] Technical component performed at [facility], [facility] [address], [address]
== END 2016-12-06 23:59 | disposition home or self-care (01) ==
LOC: SAS 11:19
PROVIDERS: ATTEND Student in an Organized Health Care Education/Training Program
DX: K81.1 Chronic cholecystitis (principal); R00.2 Palpitations; F41.9 Anxiety disorder, unspecified; Z79.891 Long term (current) use of opiate analgesic
CPT/HCPCS: 47563; 74300; J0330; J1100; J2405; J2710; J3010; J7120